=== PATIENT | male | born 1995 | race Two or more races ===

== ENCOUNTER 2024-11-06 17:39 | Emergency (ER) | payer OTHER, SELFPAY ==
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
[2024-11-06 17:52] VITALS: BP 164/77; PULSE 74; RESP 16; TEMP 36.2; O2SAT 98
== END 2024-11-06 18:10 | disposition home or self-care (01) ==
PROVIDERS: Emergency Provider Nurse Practitioner
DX: S40.812A Abrasion of left upper arm, initial encounter (principal); V29.99XA Rider (driver) (passenger) of other motorcycle injured in unspecified traffic accident, initial encounter; J06.9 Acute upper respiratory infection, unspecified
CPT/HCPCS: 99203; G0463